=== PATIENT | female | born 1945 | race Caucasian/White ===

== ENCOUNTER 2022-02-24 15:13 | Inpatient (IN) | payer OTHER, MEDICARE ==
[~2022-02-24 15:13] MED LIST: Iopamidol-370 76% 500 ML 1 ML ONE
[2022-02-24 16:10] LABS: #Basophils 0.1 thou/uL (0.0-0.2); #Eosinphils 0.2 thou/uL (0.0-0.7); #Monocytes 0.7 thou/uL (0.11-0.59); #Neutrophils 6.9 thou/uL (1.40-6.50); %Basophils 0.7 % (0.0-1.0); %Eosinophils 1.9 % (0.0-10.0); %Lymphocytes 33.5 % (21.0-51.0); %Monocytes 6.2 % (0.0-10.0); %Neutrophils 57.7 % (42.0-75.0); Hemoglobin 13.2 g/dL (12.0-16.0); Mean Corpuscular HGB CONC 32.1 g/dL (32.0-36.0); Mean Corpuscular Hemoglobin 29.3 pg (27.0-31.0); Mean Corpuscular Volume 91.3 fl (78.0-98.0); Mean Platelet Volume 8.2 fL (7.4-10.4); Platelet Count 254 thou/uL (130-400); RBC Distribution Width 13.2 % (11.5-14.5); Red Blood Cell (RBC) Count 4.52 mill/uL (4.20-5.40); White Blood Cell (WBC) Count 11.9 thou/uL (4.8-10.8)
[2022-02-24 16:22] LABS: PTT 26.6 sec (22.9-36.1)
[2022-02-24 16:29] LABS: ALT (SGPT) 75 U/L (8-55); AST (SGOT) 96 U/L (5-34); Albumin 4.1 g/dL (3.4-4.8); Alkaline Phosphatase 90 U/L (40-110); Anion Gap 16 mmol/L (10-20); BUN (Urea Nitrogen) 20 mg/dL (9.8-20.1); Bilirubin, Total 0.3 mg/dL (0.2-1.2); Calc. Creatinine Clearance 0 mL/min (70-130); Calcium 9.5 mg/dL (7.8-10.44); Carbon Dioxide 22 mmol/L (23-31); Chloride 108 mmol/L (98-107); Estimated GFR 41; Globulin 2.4 g/dL (2.4-3.5); Glucose 138 mg/dL (83-110); Potassium 3.7 mmol/L (3.5-5.1); Protein, Total 6.5 g/dL (5.8-8.1); Sodium 142 mmol/L (136-145)
[2022-02-24] MEDS ORDERED: TETANUS, DIPHTHERIA TOX,ADULT (TDVAX) 0.5 ML VIAL IM ONE (17:43)
[2022-02-24] MEDS ORDERED: Acetaminophen 325 MG TAB PO SCH (17:45)
[2022-02-24] MEDS ORDERED: Morphine 4 MG/ML VIAL SLOW IVP PRN (18:18)
[2022-02-24] MEDS ORDERED: FENTANYL 50 MCG/ML 1 ML VIAL ONE (19:19)
[2022-02-24 19:21] LABS: Lactic Acid 4.3 mmol/L (0.5-2.2)
[2022-02-24] MEDS ORDERED: Sodium Chloride 0.9% 1,000 ML IV SCH (19:30)
[2022-02-24] MEDS ORDERED: Lidocaine 1% MPF 2 ML VIAL ONE (19:59)
[2022-02-24] MEDS ORDERED: Ondansetron PF 4 MG/2 ML Vial ONE ×2 (19:59→20:23)
[2022-02-24] MEDS ORDERED: Lidocaine 2% PF 5 ML VIAL ONE (20:02)
[2022-02-24 23:34] LABS: Lactic Acid 5.3 mmol/L (0.5-2.2)
[2022-02-25 01:10] LABS: Bilirubin Negative (Negative); Blood, Urine 3+ (Negative); Clarity Clear (Clear); Glucose, Urine (Dipstick) 200 mg/dL (Negative); Ketone, Urine Trace mg/dL (Negative); Leukocyte Negative Leu/uL (Negative); Nitrite Negative (Negative); Protein, Urine (Dipstick) 50 mg/dL (Neg-Trace); Urobilinogen Normal mg/dL (Less than 2); pH, Urine 5.5 (5.0-9.0)
[2022-02-25 01:20] LABS: Specific Gravity, Urine Greater than 1.060 (1.002-1.036); Squamous Epithelial 0-3 HPF (0-3); WBC/HPF 0-3 HPF (0-3)
[2022-02-25 01:21] LABS: Bacteria/HPF Rare-Few HPF (None Seen)
[2022-02-25 01:22] LABS: Urine Culture Reflex No No
[2022-02-25] MEDS ORDERED: Sodium Chloride 0.9% 1,000 ML IV SCH (01:25)
[2022-02-25 01:26] VITALS: BMI 24.1
[2022-02-25] MEDS ORDERED: Piperacillin/Tazobactam 3.375 GM in Sodium Chloride 0.9% 100 ML IVPB SCH ×3 (01:30→06:00)
[2022-02-25] MEDS: Acetaminophen/Codeine 30-300mg Tablet PO SCH ×5 (01:38→17:51)
[2022-02-25] MEDS: Senokot S 8.6-50 MG TAB PO SCH ×3 (01:53→20:37)
[2022-02-25 04:32] LABS: Lactic Acid 3.7 mmol/L (0.5-2.2)
[2022-02-25 04:40] LABS: CK (CPK) 2992 U/L (29-168); Phosphorus 3.1 mg/dL (2.3-4.7)
[2022-02-25 04:42] LABS: Anion Gap 14 mmol/L (10-20); BUN (Urea Nitrogen) 19 mg/dL (9.8-20.1); Calc. Creatinine Clearance 44 mL/min (70-130); Calcium 8.3 mg/dL (7.8-10.44); Carbon Dioxide 21 mmol/L (23-31); Chloride 112 mmol/L (98-107); Estimated GFR 47; Glucose 166 mg/dL (83-110); Magnesium 1.7 mg/dL (1.6-2.6); Potassium 3.8 mmol/L (3.5-5.1); Sodium 143 mmol/L (136-145)
[2022-02-25] MEDS ORDERED: Sodium Bicarbonate 100 MEQ in Dextrose 5% in Water 1,000 ML IV SCH (05:45)
[2022-02-25] MEDS ORDERED: CEFAZOLIN 2 GM in Sodium Chloride 0.9% 100 ML IVPB SCH (07:15)
[2022-02-25 07:19] LABS: #Lymphocytes 0.9 thou/uL (1.20-3.40); #Neutrophils 6.9 thou/uL (1.40-6.50); %Basophils 0.1 % (0.0-1.0); %Eosinophils 0.2 % (0.0-10.0); %Lymphocytes 10.5 % (21.0-51.0); %Monocytes 11.2 % (0.0-10.0); Hemoglobin 9.2 g/dL (12.0-16.0); Mean Corpuscular HGB CONC 31.3 g/dL (32.0-36.0); Mean Corpuscular Hemoglobin 28.6 pg (27.0-31.0); Mean Corpuscular Volume 91.3 fl (78.0-98.0); Platelet Count 174 thou/uL (130-400); RBC Distribution Width 13.3 % (11.5-14.5); Red Blood Cell (RBC) Count 3.22 mill/uL (4.20-5.40); White Blood Cell (WBC) Count 8.8 thou/uL (4.8-10.8)
[2022-02-25 07:56] LABS: SARS-CoV-2 NAA Rapid Test Not Detected (NotDetected)
[2022-02-25] MEDS: Gabapentin 100 MG CAP PO SCH (08:31)
[2022-02-25] MEDS: Pantoprazole 40 MG VIAL IVP SCH (08:31)
[2022-02-25] MEDS: Polyethylene Glycol 3350 17 GM Packet PO SCH (08:34)
[2022-02-25] MEDS ORDERED: Magnesium 2 GM/50 ML(in water) 2 GM in Premix Bag 1 BAG IVPB SCH (14:30)
[2022-02-25] MEDS: Donepezil HCl 10 MG TAB PO SCH (20:37)
[2022-02-25] MEDS: Atorvastatin Calcium 20 MG TAB PO SCH (20:37)
[2022-02-26] MEDS: Acetaminophen/Codeine 30-300mg Tablet PO SCH ×5 (00:25→18:00)
[2022-02-26 04:03] LABS: #Eosinphils 0.1 thou/uL (0.0-0.7); #Monocytes 0.8 thou/uL (0.11-0.59); #Neutrophils 6.1 thou/uL (1.40-6.50); %Basophils 0.3 % (0.0-1.0); %Eosinophils 1.4 % (0.0-10.0); %Lymphocytes 12.7 % (21.0-51.0); %Monocytes 10.2 % (0.0-10.0); %Neutrophils 75.3 % (42.0-75.0); Hemoglobin 7.9 g/dL (12.0-16.0); Mean Corpuscular HGB CONC 32.9 g/dL (32.0-36.0); Mean Corpuscular Hemoglobin 30.2 pg (27.0-31.0); Mean Corpuscular Volume 91.8 fl (78.0-98.0); Mean Platelet Volume 8.2 fL (7.4-10.4); Platelet Count 128 thou/uL (130-400); RBC Distribution Width 13.3 % (11.5-14.5); Red Blood Cell (RBC) Count 2.61 mill/uL (4.20-5.40); White Blood Cell (WBC) Count 8.1 thou/uL (4.8-10.8)
[2022-02-26 04:25] LABS: Troponin I 0.023 ng/mL (< 0.028)
[2022-02-26 04:28] LABS: Anion Gap 11 mmol/L (10-20); BUN (Urea Nitrogen) 16 mg/dL (9.8-20.1); CK (CPK) 2434 U/L (29-168); Calc. Creatinine Clearance 57 mL/min (70-130); Calcium 8.3 mg/dL (7.8-10.44); Carbon Dioxide 25 mmol/L (23-31); Chloride 106 mmol/L (98-107); Estimated GFR 64; Glucose 106 mg/dL (83-110); Phosphorus 2.4 mg/dL (2.3-4.7); Sodium 138 mmol/L (136-145)
[2022-02-26] MEDS: Levothyroxine Sodium 112 MCG TAB PO SCH (06:39)
[2022-02-26] MEDS: Senokot S 8.6-50 MG TAB PO SCH ×2 (08:18→21:20)
[2022-02-26] MEDS: Polyethylene Glycol 3350 17 GM Packet PO SCH (08:18)
[2022-02-26] MEDS: Pantoprazole 40 MG VIAL IVP SCH (08:18)
[2022-02-26] MEDS: Gabapentin 100 MG CAP PO SCH (08:19)
[2022-02-26] MEDS: Ondansetron PF 4 MG/2 ML Vial IVP PRN (08:20)
[2022-02-26] MEDS: Ferrous Sulfate 325 MG TAB PO SCH ×2 (08:21→21:20)
[2022-02-26] MEDS: Ascorbic Acid 500 mg Chewable Tablet PO SCH ×2 (08:21→21:20)
[2022-02-26] MEDS ORDERED: Glycerin Adult Supp. (24 ct jar) RC PRN (09:36)
[2022-02-26] MEDS ORDERED: Glycerin Adult Supp. (24 ct jar) RC SCH (09:45)
[2022-02-26 17:24] LABS: Hemoglobin 7.8 g/dL (12.0-16.0)
[2022-02-26] MEDS: Atorvastatin Calcium 20 MG TAB PO SCH (21:20)
[2022-02-26] MEDS: Donepezil HCl 10 MG TAB PO SCH (21:21)
[2022-02-27] MEDS: Acetaminophen/Codeine 30-300mg Tablet PO SCH ×2 (00:57→05:48)
[2022-02-27] MEDS: Cyclobenzaprine 10 MG TAB PO PRN ×2 (05:48→21:46)
[2022-02-27] MEDS: Levothyroxine Sodium 112 MCG TAB PO SCH (05:48)
[2022-02-27 05:57] LABS: #Eosinphils 0.1 thou/uL (0.0-0.7); #Lymphocytes 1.3 thou/uL (1.20-3.40); #Monocytes 0.9 thou/uL (0.11-0.59); #Neutrophils 6.8 thou/uL (1.40-6.50); %Basophils 0.3 % (0.0-1.0); %Eosinophils 1.5 % (0.0-10.0); %Lymphocytes 14.3 % (21.0-51.0); %Monocytes 9.4 % (0.0-10.0); %Neutrophils 74.6 % (42.0-75.0); Hemoglobin 7.2 g/dL (12.0-16.0); Mean Corpuscular HGB CONC 32.2 g/dL (32.0-36.0); Mean Corpuscular Hemoglobin 29.4 pg (27.0-31.0); Mean Corpuscular Volume 91.3 fl (78.0-98.0); Mean Platelet Volume 7.7 fL (7.4-10.4); Platelet Count 137 thou/uL (130-400); RBC Distribution Width 13.4 % (11.5-14.5); Red Blood Cell (RBC) Count 2.43 mill/uL (4.20-5.40); White Blood Cell (WBC) Count 9.1 thou/uL (4.8-10.8)
[2022-02-27 06:20] LABS: Anion Gap 10 mmol/L (10-20); BUN (Urea Nitrogen) 19 mg/dL (9.8-20.1); Calc. Creatinine Clearance 57 mL/min (70-130); Calcium 8.4 mg/dL (7.8-10.44); Carbon Dioxide 27 mmol/L (23-31); Chloride 102 mmol/L (98-107); Estimated GFR 62; Glucose 106 mg/dL (83-110); Phosphorus 2.7 mg/dL (2.3-4.7); Potassium 3.8 mmol/L (3.5-5.1); Sodium 135 mmol/L (136-145)
[2022-02-27] MEDS: Gabapentin 100 MG CAP PO SCH ×3 (10:12→21:44)
[2022-02-27] MEDS: Senokot S 8.6-50 MG TAB PO SCH ×2 (10:13→21:45)
[2022-02-27] MEDS: Ascorbic Acid 500 mg Chewable Tablet PO SCH ×2 (10:13→21:46)
[2022-02-27] MEDS: Ferrous Sulfate 325 MG TAB PO SCH ×2 (10:14→21:44)
[2022-02-27] MEDS: Polyethylene Glycol 3350 17 GM Packet PO SCH (10:14)
[2022-02-27] MEDS ORDERED: PHOS-NAK 1 PKT PACK PO SCH (10:45)
[2022-02-27] MEDS ORDERED: Morphine 4 MG/ML VIAL SLOW IVP SCH (12:45)
[2022-02-27] MEDS: traMADol HCl 50 MG TAB PO SCH ×2 (13:09→18:45)
[2022-02-27] MEDS: Atorvastatin Calcium 20 MG TAB PO SCH (21:44)
[2022-02-27] MEDS: Donepezil HCl 10 MG TAB PO SCH (21:46)
[2022-02-28] MEDS: traMADol HCl 50 MG TAB PO SCH ×5 (00:58→23:51)
[2022-02-28] MEDS ORDERED: FLU VACC QS2022-23(65YR UP)/PF 240 MCG/0.7 ML SYRINGE IM ONE (03:15)
[2022-02-28] MEDS: Levothyroxine Sodium 112 MCG TAB PO SCH (05:00)
[2022-02-28 05:59] LABS: #Basophils 0.1 thou/uL (0.0-0.2); #Eosinphils 0.4 thou/uL (0.0-0.7); #Lymphocytes 1.2 thou/uL (1.20-3.40); #Monocytes 0.8 thou/uL (0.11-0.59); %Basophils 0.9 % (0.0-1.0); %Eosinophils 5.6 % (0.0-10.0); %Lymphocytes 15.9 % (21.0-51.0); %Monocytes 10.1 % (0.0-10.0); %Neutrophils 67.5 % (42.0-75.0); Hemoglobin 7.7 g/dL (12.0-16.0); Mean Corpuscular HGB CONC 31.6 g/dL (32.0-36.0); Mean Corpuscular Hemoglobin 29.1 pg (27.0-31.0); Mean Corpuscular Volume 92.1 fl (78.0-98.0); Mean Platelet Volume 7.8 fL (7.4-10.4); Platelet Count 178 thou/uL (130-400); RBC Distribution Width 13.5 % (11.5-14.5); Red Blood Cell (RBC) Count 2.64 mill/uL (4.20-5.40); White Blood Cell (WBC) Count 7.4 thou/uL (4.8-10.8)
[2022-02-28 06:37] LABS: Anion Gap 10 mmol/L (10-20); BUN (Urea Nitrogen) 18 mg/dL (9.8-20.1); Calc. Creatinine Clearance 68 mL/min (70-130); Calcium 8.7 mg/dL (7.8-10.44); Carbon Dioxide 28 mmol/L (23-31); Chloride 102 mmol/L (98-107); Estimated GFR 75; Glucose 98 mg/dL (83-110); Magnesium 1.8 mg/dL (1.6-2.6); Phosphorus 3.4 mg/dL (2.3-4.7); Potassium 3.7 mmol/L (3.5-5.1); Sodium 136 mmol/L (136-145)
[2022-02-28] MEDS ORDERED: Bisacodyl 10 MG SUPP PR PRN (07:45)
[2022-02-28] MEDS: Gabapentin 100 MG CAP PO SCH ×3 (08:50→21:51)
[2022-02-28] MEDS: Ferrous Sulfate 325 MG TAB PO SCH ×2 (08:52→21:54)
[2022-02-28] MEDS: Senokot S 8.6-50 MG TAB PO SCH ×2 (08:53→21:50)
[2022-02-28] MEDS: Ascorbic Acid 500 mg Chewable Tablet PO SCH ×2 (08:54→21:53)
[2022-02-28] MEDS: traMADol HCl 50 MG TAB PO PRN (08:54)
[2022-02-28] MEDS: Polyethylene Glycol 3350 17 GM Packet PO SCH (08:55)
[2022-02-28] MEDS: Ibuprofen 200 MG TAB PO PRN (12:55)
[2022-02-28] MEDS: Donepezil HCl 10 MG TAB PO SCH (21:53)
[2022-02-28] MEDS: Atorvastatin Calcium 20 MG TAB PO SCH (21:53)
[2022-02-28] MEDS: Cyclobenzaprine 10 MG TAB PO PRN (23:51)
[2022-03-01] MEDS: traMADol HCl 50 MG TAB PO SCH ×4 (05:40→23:41)
[2022-03-01] MEDS: Levothyroxine Sodium 112 MCG TAB PO SCH (05:40)
[2022-03-01 06:32] LABS: #Eosinphils 0.3 thou/uL (0.0-0.7); #Lymphocytes 1.2 thou/uL (1.20-3.40); #Neutrophils 4.5 thou/uL (1.40-6.50); %Basophils 0.3 % (0.0-1.0); %Eosinophils 4.9 % (0.0-10.0); %Lymphocytes 17.4 % (21.0-51.0); %Monocytes 13.9 % (0.0-10.0); %Neutrophils 63.5 % (42.0-75.0); Hemoglobin 7.3 g/dL (12.0-16.0); Mean Corpuscular HGB CONC 31.4 g/dL (32.0-36.0); Mean Corpuscular Hemoglobin 28.6 pg (27.0-31.0); Mean Corpuscular Volume 91.2 fl (78.0-98.0); Mean Platelet Volume 7.4 fL (7.4-10.4); Platelet Count 216 thou/uL (130-400); RBC Distribution Width 13.5 % (11.5-14.5); Red Blood Cell (RBC) Count 2.54 mill/uL (4.20-5.40)
[2022-03-01 06:55] LABS: Anion Gap 11 mmol/L (10-20); BUN (Urea Nitrogen) 20 mg/dL (9.8-20.1); CK (CPK) 378 U/L (29-168); Calc. Creatinine Clearance 68 mL/min (70-130); Calcium 9.2 mg/dL (7.8-10.44); Carbon Dioxide 29 mmol/L (23-31); Chloride 101 mmol/L (98-107); Estimated GFR 75; Glucose 96 mg/dL (83-110); Magnesium 1.9 mg/dL (1.6-2.6); Phosphorus 3.5 mg/dL (2.3-4.7); Potassium 4.2 mmol/L (3.5-5.1); Sodium 137 mmol/L (136-145)
[2022-03-01] MEDS: Enoxaparin Sodium 40 MG/0.4 ML SYRINGE SC SCH (09:15)
[2022-03-01] MEDS: Ascorbic Acid 500 mg Chewable Tablet PO SCH ×2 (09:15→20:29)
[2022-03-01] MEDS: Polyethylene Glycol 3350 17 GM Packet PO SCH (09:15)
[2022-03-01] MEDS: Ferrous Sulfate 325 MG TAB PO SCH ×2 (09:15→20:29)
[2022-03-01] MEDS: Gabapentin 100 MG CAP PO SCH ×3 (09:16→20:30)
[2022-03-01] MEDS: Senokot S 8.6-50 MG TAB PO SCH ×2 (09:16→20:29)
[2022-03-01] MEDS: Ibuprofen 200 MG TAB PO PRN (15:18)
[2022-03-01 17:48] LABS: #Eosinphils 0.2 thou/uL (0.0-0.7); #Lymphocytes 1.1 thou/uL (1.20-3.40); #Monocytes 0.8 thou/uL (0.11-0.59); #Neutrophils 4.4 thou/uL (1.40-6.50); %Basophils 0.5 % (0.0-1.0); %Eosinophils 3.2 % (0.0-10.0); %Lymphocytes 16.9 % (21.0-51.0); %Monocytes 12.8 % (0.0-10.0); %Neutrophils 66.6 % (42.0-75.0); Hemoglobin 8.7 g/dL (12.0-16.0); Mean Corpuscular HGB CONC 32.8 g/dL (32.0-36.0); Mean Corpuscular Hemoglobin 29.4 pg (27.0-31.0); Mean Corpuscular Volume 89.7 fl (78.0-98.0); Platelet Count 234 thou/uL (130-400); RBC Distribution Width 13.4 % (11.5-14.5); Red Blood Cell (RBC) Count 2.95 mill/uL (4.20-5.40); White Blood Cell (WBC) Count 6.6 thou/uL (4.8-10.8)
[2022-03-01] MEDS ORDERED: Lisinopril 20 MG TAB PO SCH (18:15)
[2022-03-01] MEDS: Atorvastatin Calcium 20 MG TAB PO SCH (20:29)
[2022-03-01] MEDS: Cyclobenzaprine 10 MG TAB PO PRN (20:30)
[2022-03-01] MEDS: Donepezil HCl 10 MG TAB PO SCH (20:30)
[2022-03-01] MEDS: hydrALAZINE 20 MG/ML VIAL SLOW IVP PRN (23:47)
[2022-03-02] MEDS: hydrALAZINE 20 MG/ML VIAL SLOW IVP PRN ×2 (04:35→12:16)
[2022-03-02] MEDS: Ibuprofen 200 MG TAB PO PRN (04:36)
[2022-03-02] MEDS: Cyclobenzaprine 10 MG TAB PO PRN (04:36)
[2022-03-02] MEDS: Levothyroxine Sodium 112 MCG TAB PO SCH (05:59)
[2022-03-02] MEDS: traMADol HCl 50 MG TAB PO SCH ×3 (05:59→17:02)
[2022-03-02 06:28] LABS: #Basophils 0.1 thou/uL (0.0-0.2); #Eosinphils 0.2 thou/uL (0.0-0.7); #Lymphocytes 1.3 thou/uL (1.20-3.40); #Neutrophils 5.1 thou/uL (1.40-6.50); %Basophils 0.7 % (0.0-1.0); %Eosinophils 3.1 % (0.0-10.0); %Lymphocytes 16.9 % (21.0-51.0); %Monocytes 12.7 % (0.0-10.0); %Neutrophils 66.6 % (42.0-75.0); Hemoglobin 9.4 g/dL (12.0-16.0); Mean Corpuscular HGB CONC 33.5 g/dL (32.0-36.0); Mean Corpuscular Hemoglobin 29.9 pg (27.0-31.0); Mean Corpuscular Volume 89.2 fl (78.0-98.0); Mean Platelet Volume 7.2 fL (7.4-10.4); Platelet Count 260 thou/uL (130-400); RBC Distribution Width 13.5 % (11.5-14.5); Red Blood Cell (RBC) Count 3.15 mill/uL (4.20-5.40); White Blood Cell (WBC) Count 7.6 thou/uL (4.8-10.8)
[2022-03-02] MEDS: Ferrous Sulfate 325 MG TAB PO SCH ×2 (08:56→20:37)
[2022-03-02] MEDS: Senokot S 8.6-50 MG TAB PO SCH ×2 (08:56→20:38)
[2022-03-02] MEDS: Ascorbic Acid 500 mg Chewable Tablet PO SCH ×2 (08:56→20:51)
[2022-03-02] MEDS: Gabapentin 100 MG CAP PO SCH ×3 (08:56→20:37)
[2022-03-02] MEDS: Lisinopril/Hydrochlorothiazide 20 mg/12.5 mg Tablet PO SCH (08:57)
[2022-03-02] MEDS: Enoxaparin Sodium 40 MG/0.4 ML SYRINGE SC SCH (08:57)
[2022-03-02] MEDS: Polyethylene Glycol 3350 17 GM Packet PO SCH (08:57)
[2022-03-02] MEDS: Ondansetron PF 4 MG/2 ML Vial IVP PRN (12:07)
[2022-03-02] MEDS: Atorvastatin Calcium 20 MG TAB PO SCH (20:37)
[2022-03-02] MEDS: Donepezil HCl 10 MG TAB PO SCH (20:38)
[2022-03-03] MEDS: traMADol HCl 50 MG TAB PO SCH ×4 (01:00→17:23)
[2022-03-03] MEDS: hydrALAZINE 20 MG/ML VIAL SLOW IVP PRN (01:05)
[2022-03-03] MEDS: Levothyroxine Sodium 112 MCG TAB PO SCH (06:43)
[2022-03-03] MEDS: Lisinopril/Hydrochlorothiazide 20 mg/12.5 mg Tablet PO SCH (08:28)
[2022-03-03] MEDS: Ascorbic Acid 500 mg Chewable Tablet PO SCH ×2 (08:28→21:17)
[2022-03-03] MEDS: Senokot S 8.6-50 MG TAB PO SCH ×2 (08:28→21:19)
[2022-03-03] MEDS: Polyethylene Glycol 3350 17 GM Packet PO SCH (08:28)
[2022-03-03] MEDS: Gabapentin 100 MG CAP PO SCH ×3 (08:29→21:18)
[2022-03-03] MEDS: Enoxaparin Sodium 40 MG/0.4 ML SYRINGE SC SCH (08:29)
[2022-03-03] MEDS: traMADol HCl 50 MG TAB PO PRN (14:06)
[2022-03-03] MEDS: Ferrous Sulfate 325 MG TAB PO SCH (21:18)
[2022-03-03] MEDS: Atorvastatin Calcium 20 MG TAB PO SCH (21:18)
[2022-03-03] MEDS: Donepezil HCl 10 MG TAB PO SCH (21:18)
[2022-03-03] MEDS: Cyclobenzaprine 10 MG TAB PO PRN (21:19)
[2022-03-03] MEDS: Ibuprofen 200 MG TAB PO PRN (21:19)
[2022-03-04] MEDS: traMADol HCl 50 MG TAB PO SCH ×3 (00:09→12:05)
[2022-03-04] MEDS: Levothyroxine Sodium 112 MCG TAB PO SCH (06:27)
[2022-03-04] MEDS: Ascorbic Acid 500 mg Chewable Tablet PO SCH (08:15)
[2022-03-04] MEDS: Polyethylene Glycol 3350 17 GM Packet PO SCH (08:15)
[2022-03-04] MEDS: Enoxaparin Sodium 40 MG/0.4 ML SYRINGE SC SCH (08:15)
[2022-03-04] MEDS: Senokot S 8.6-50 MG TAB PO SCH (08:15)
[2022-03-04] MEDS: Ferrous Sulfate 325 MG TAB PO SCH (08:15)
[2022-03-04] MEDS: Gabapentin 100 MG CAP PO SCH (08:16)
[2022-03-04] MEDS: Lisinopril/Hydrochlorothiazide 20 mg/12.5 mg Tablet PO SCH (08:17)
[2022-03-04] MEDS: traMADol HCl 50 MG TAB PO PRN (13:44)
[2022-03-05 02:38] VITALS: BP 175/70
[2022-03-05 02:43] VITALS: TEMP 98.3
== END 2022-03-04 14:00 | disposition home health service (06) | DRG 958 ==
LOC: ERS 15:13 → ERHOLD 17:49 → IMCU/EMU 02-25 01:09 → SURG B 02-26 13:42
PROVIDERS: ADMIT Surgery; ATTEND Surgery
PROC: 0JQ00ZZ Repair Scalp Subcutaneous Tissue and Fascia, Open Approach (ICD-10-PCS; principal; 2022-02-24)
DX: S27.321A Contusion of lung, unilateral, initial encounter (principal); S36.892A Contusion of other intra-abdominal organs, initial encounter; D62 Acute posthemorrhagic anemia; E87.20 Acidosis, unspecified; S37.019A Minor contusion of unspecified kidney, initial encounter; S52.202A Unspecified fracture of shaft of left ulna, initial encounter for closed fracture; N17.9 Acute kidney failure, unspecified; S12.100A Unspecified displaced fracture of second cervical vertebra, initial encounter for closed fracture; S52.502A Unspecified fracture of the lower end of left radius, initial encounter for closed fracture; S12.601A Unspecified nondisplaced fracture of seventh cervical vertebra, initial encounter for closed fracture; S32.029A Unspecified fracture of second lumbar vertebra, initial encounter for closed fracture; S32.039A Unspecified fracture of third lumbar vertebra, initial encounter for closed fracture; S32.049A Unspecified fracture of fourth lumbar vertebra, initial encounter for closed fracture; S12.500A Unspecified displaced fracture of sixth cervical vertebra, initial encounter for closed fracture; S22.42XA Multiple fractures of ribs, left side, initial encounter for closed fracture; S22.21XA Fracture of manubrium, initial encounter for closed fracture; S37.812A Contusion of adrenal gland, initial encounter; V49.9XXA Car occupant (driver) (passenger) injured in unspecified traffic accident, initial encounter; Z20.822 Contact with and (suspected) exposure to COVID-19; I10 Essential (primary) hypertension; E78.5 Hyperlipidemia, unspecified; S62.102A Fracture of unspecified carpal bone, left wrist, initial encounter for closed fracture; E03.9 Hypothyroidism, unspecified; K44.9 Diaphragmatic hernia without obstruction or gangrene; S01.01XA Laceration without foreign body of scalp, initial encounter; F03.90 Unspecified dementia, unspecified severity, without behavioral disturbance, psychotic disturbance, mood disturbance, and anxiety; T79.6XXA Traumatic ischemia of muscle, initial encounter; S20.219A Contusion of unspecified front wall of thorax, initial encounter; R09.02 Hypoxemia; Z79.890 Hormone replacement therapy; Z79.899 Other long term (current) drug therapy
CPT/HCPCS: 12004; 29125; 36415; 36430; 70450; 70498; 71045; 71260; 72040; 72125; 72170; 74177; 80048; 80053; 81001; 82533; 82550; 83605; 83735; 83880; 84100; 84484; 85025; 85610; 85730; 86850; 86900; 86901; 87811; 90471; 93005; 94640; 94760; 96374; 96375; 96376; C9113; G0390; J0360; J1650; J2001; J2270; J2405; J2543; J3010; J3475; J3490; J7050; J7070; J7620; P9016; Q9967; U0002

== ENCOUNTER 2022-03-17 11:09 | Outpatient (CLI) | payer MEDICARE | END 2022-03-17 11:10 | disposition home or self-care (01) | LOC: BICRAD 11:09 | PROVIDERS: ATTEND Surgery | DX: S22.39XD Fracture of one rib, unspecified side, subsequent encounter for fracture with routine healing (principal); J90 Pleural effusion, not elsewhere classified | CPT/HCPCS: 71046 ==

== ENCOUNTER 2022-03-27 12:46 | Outpatient (CLI) | payer MEDICARE | END 2022-03-27 12:47 | disposition home or self-care (01) | LOC: TBSIIMAG 12:46 | PROVIDERS: ATTEND Neurological Surgery | DX: S12.120D Other displaced dens fracture, subsequent encounter for fracture with routine healing (principal) | CPT/HCPCS: 72040 ==

== ENCOUNTER 2022-06-06 09:58 | Outpatient (CLI) | payer MEDICARE | END 2022-06-06 09:59 | disposition home or self-care (01) | LOC: TBSIIMAG 09:58 | PROVIDERS: ATTEND Neurological Surgery | DX: S12.9XXA Fracture of neck, unspecified, initial encounter (principal) | CPT/HCPCS: 72040 ==